=== PATIENT | female | born 1990 | race Caucasian/White ===

== ENCOUNTER 2019-03-11 19:11 | Emergency (ER) | payer OTHER, MEDICAID, SELFPAY ==
[2019-03-11 19:24] VITALS: BMI 27.4
[2019-03-11 19:28] VITALS: BP 132/98; PULSE 86; RESP 20; TEMP 36.6; O2SAT 100; BMI 27.4
[2019-03-11 19:46] LABS: Microscopic, Urine URINE MICROSCOPIC (MICROSCOPIC)
[2019-03-11 19:47] LABS: Basophils # 0.1 K/mm3 (0-0.2); Basophils % 0.6 % (0.1-2.0); Eosinophils # 0.4 K/mm3 (0.0-0.4); Eosinophils % 2.7 % (0.1-12.0); Hematocrit 42.4 % (37.0-47.0); Hemoglobin 13.6 g/dL (12.2-16.2); Lymphocytes # 4.4 K/mm3 (0.7-4.5); Mean Corpuscular Hemoglobin 28.7 pg (27.0-31.2); Mean Corpuscular Volume 89.7 fl (81-99); Mean Platelet Volume 7.3 fl (7.4-10.4); Monocytes # 0.8 K/mm3 (0.1-1.0); Monocytes % 5.9 % (1.7-9.3); Neutrophils # 7.6 K/mm3 (1.8-7.8); Neutrophils % 57.8 % (37.0-80.0); Platelet Count 267 K/mm3 (142-424); Red Blood Count 4.72 M/mm3 (4.20-5.40); Red Cell Distribution Width 13.6 % (11.5-17.5); White Blood Count 13.2 K/mm3 (4.8-10.8)
[2019-03-11 19:49] LABS: Appearance,Urine CLEAR (Clear); Bilirubin,Urine Negative (Negative); Blood, Urine Negative (Negative); Color,Urine YELLOW (Yellow); Glucose,Urine (UA) Negative (Negative); Ketones,Urine Negative (Negative); Leukocyte Esterase,Urine 1+ (Negative); Nitrate,Urine Negative (Negative); Protein,Urine Negative (Negative); Urobilinogen,Urine 0.2 EU/dl (0.2)
[2019-03-11 19:51] LABS: Albumin Level 4.2 gm/dL (3.4-5.0); Anion Gap 13.6 mEq/L (5-15); Blood Urea Nitrogen 13 mg/dL (7-18); Calcium 9.5 mg/dL (8.5-10.1); Carbon Dioxide 29 mmol/L (21.0-32.0); Chloride 102 mmol/L (98-107); Creatinine Clearance Estimated 115 mL/min (50-200); Creatinine,Serum 0.85 mg/dL (0.55-1.02); Estimated Glomerular Filt Rate 81 ml/min (>60); GFR (African American) 98 ML/MIN (>60); Glucose 77 mg/dL (74-106); Potassium 3.6 mmoL/L (3.5-5.1); Sodium 141 mmol/L (136-145)
--- NOTE | 2019-03-11 19:53 | PC.NURSE ---
urine test is positive, ultra sound tech called in.
[2019-03-11 19:55] LABS: Urine Pregnancy, HCG Qual. Positive (Negative)
--- NOTE | 2019-03-11 19:57 | US_ITS ---
US OB transvaginal CLINICAL INDICATION: ITS.REASON: spotting, ORDERING PHYSICIAN: Ceferino Isaacs MD PATIENT AGE: 28 years Comparison: None FINDINGS: There is an intrauterine gestational sac with a mean sac diameter of 7 mm. No pole is evident. No yolk sac apparent. Cannot confirm viability at this time. The right ovary measures 4 x 1.8 cm. Left ovary measures 3 x 1.9 cm. There is bilateral foraminal blood flow. No cul-de-sac fluid. IMPRESSION: There is an intrauterine gestational sac. No pole apparent. It could be due to early to see a pole. Please correlate with serum beta hCG and follow-up ultrasound. Cannot confirm viability at this time.
[2019-03-11 20:01] LABS: Amorphous Sediment,Urine 2+ /lpf; Squamous Epithelial Cell,Urine 20-50 #/hpf (0-5)
--- NOTE | 2019-03-11 20:04 | HMH.EDPREG ---
ED Disposition Clinical Impression: Qualifiers: Weeks of gestation: less than 8 weeks Qualified Code(s): Z3A.01 - Less than 8 weeks gestation of Disposition: Home, Self-Care Condition on Discharge: Good Instructions: DI for Vaginal Bleeding Additional Instructions: see pcp and ob for follow up Referrals: Provider,Referral, [Primary Care Provider] - - Critical Care Critical Care Time: No Attestation: On 03/11/19, the high probability of a clinically significant, sudden or life threatening deterioration of the following system(s) required my full and direct attention, intervention and personal management. The time I documented below is in addition to time spent performing reported procedures but includes the following listed in this critical care notation. Medical Decision Making - Medical Records Medical records reviewed: Yes: I reviewed the patient's medical records. - Amadeo Inquiry Pt receiving controlled substance: No Vital Signs: 03/11/19 19:28 Temperature 97.9 F Temperature Source Oral Pulse Rate [Right] 86 Respiratory Rate 20 Blood Pressure [Right Arm] 132/98 H Blood Pressure Mean [Right Arm] 109 02 Sat by Pulse Oximetry 100 - Lab Data Lab results reviewed: Yes: I reviewed the patient's lab results. Lab Results 03/11/19 19:23: Urine Color Yellow, Urine Appearance Clear, Urine pH 6.0, Ur Specific [place] 1.020, Urine Protein Negative, Urine Glucose (UA) Negative, Urine Ketones Negative, Urine Blood Negative, Urine Nitrate Negative, Urine Bilirubin Negative, Urine Urobilinogen 0.2, Ur Leukocyte Esterase 1+ A, Urine WBC 3-5, Ur Squamous Epith Cells 20-50, Amorphous Sediment 2+ 03/11/19 19:23: Urine HCG, Qual Positive 03/11/19 19:35: WBC 13.2 H, RBC 4.72, Hgb 13.6, Hct 42.4, MCV 89.7, MCH 28.7, MCHC 32.0, RDW 13.6, Plt Count 267, MPV 7.3 L, Neut % (Auto) 57.8, Lymph % (Auto) 33.0, [place] % (Auto) 5.9, Eos % (Auto) 2.7, Baso % (Auto) 0.6, Neut # (Auto) 7.6, Lymph # (Auto) 4.4, [place] # (Auto) 0.8, Eos # (Auto) 0.4, Baso # (Auto) 0.1 03/11/19 19:35: Sodium 141, Potassium 3.6, Chloride 102, Carbon Dioxide 29, Anion Gap 13.6, BUN 13, Creatinine 0.85, Estimated Creat Clear 115, Estimated GFR 81, Est GFR ( Amer) 98, Glucose 77, Calcium 9.5, Total Bilirubin 0.4, AST 13 L, ALT 32, Alkaline Phosphatase 117 H, Total Protein 8.1, Albumin 4.2, Globulin 3.9 H, Albumin/Globulin Ratio 1.1, HCG, Quant 7055 H 03/11/19 19:35: Blood Type O Positive Result diagrams: 03/11/19 19:35 03/11/19 19:35 Orders (Tests/Meds): ED MEDICATIONS Generic Name Dose Route Start Last Admin Trade Name Freq PRN Reason Stop Dose Admin Sodium Chloride 1,000 mls @ 999 mls/hr 03/11/19 19:30 03/11/19 20:16 Sod Chlor 0.9% 1000ml Bag IV 03/11/19 20:30 999 mls/hr .Q1H1M SON Administration ORDERS Category Date Time Status ABO/RH Type Stat BBK 03/11/19 20:05 Ordered Urine Culture Stat Micro 03/11/19 19:23 Received US OB transvaginal Stat Ultrasound 03/11/19 19:57 Ordered - US Data US Images: Pelvis ED US Reviewed: Yes: I have viewed radiologist's interpretation Findings Narrative: gestational sac HPI - General Chief complaint: Vaginal Bleeding Stated complaint: Preg,lots os spotting Time Seen by Provider: 03/11/19 20:00 Mode of Arrival: Ambulatory Source of Information: Patient Limitations: No Limitations Description of Symptoms (Recalled from ER Triage Doc. by RN): Pt states she took a home test thursday and it came back positive, pt stated she began spotting pink blood with mild lower abd cramps today. Pt is unaware how far along she is. Pt states her last period was in january. - History of Present Illness HPI Narrative: spotting today with no pain with early MD Complaint: vaginal bleeding Onset (ago): hour(s) Consistency: intermittent Severity: mild Associated symptoms: denies other symptoms : yes Date of Last Menstrual Period
[2019-03-11 20:27] LABS: Alanine Aminotransferase 32 U/L (12-78); Albumin/Globulin Ratio 1.1 (1.1-1.8); Alkaline Phosphatase 117 U/L (46-116); Aspartate Amino Transferase 13 U/L (15-37); Bilirubin,Total 0.4 mg/dL (0.2-1.0); Globulin 3.9 gm/dl (1.3-3.2); HCG,Quantitative 7055 mIU/mL; Total Protein,Serum 8.1 gm/dL (6.4-8.2)
--- NOTE | 2019-03-11 20:40 | PC.NURSE ---
Pt to US
[2019-03-11 21:36] VITALS: BP 118/78; PULSE 79; RESP 17; TEMP 36.6; O2SAT 100
== END 2019-03-11 21:38 | disposition home or self-care (01) ==
PROVIDERS: Emergency Medicine; Emergency Provider Emergency Medicine
DX: O26.851 Spotting complicating pregnancy, first trimester (principal); F17.210 Nicotine dependence, cigarettes, uncomplicated
CPT/HCPCS: 76817; 80053; 81001; 81025; 84702; 85025; 86900; 86901; 87086; 96365; 99283

== ENCOUNTER 2021-08-04 16:03 | Emergency (ER) | payer MEDICAID, SELFPAY ==
[2021-08-04 16:50] VITALS: BP 127/88; PULSE 86; RESP 19; TEMP 36.9; O2SAT 100; BMI 27.4
[2021-08-04 17:14] LABS: Color,Urine Dark Yellow (Yellow)
[2021-08-04 17:15] LABS: Apearance,Urine Cloudy (Clear); Bilirubin,Urine Negative (Negative); Blood, Urine 1+ (Negative); Glucose,Urine (UA) Negative (Negative); Ketones,Urine Negative (Negative); Protein,Urine 1+ (Negative); UTC Leukocyte Esterase,Urine 3+ (Negative); UTC Nitrate,Urine Positive (Negative); Urobilinogen,Urine 0.2 EU/dl (0.2)
--- NOTE | 2021-08-04 17:37 | HMH.EDUTC ---
[facility] [place] Disposition Clinical Impression: UTI (urinary tract infection) Qualifiers: Urinary tract infection type: site unspecified Hematuria presence: with hematuria Qualified Code(s): N39.0 - Urinary tract infection, site not specified Disposition: Home, Self-Care Condition on Discharge: Good Instructions: Trimethoprim/Sulfamethoxazole (Alternative Therapy), Urinary Tract Infection, DI for Urinary Tract Infection (UTI) Additional Instructions: *Increase fluids. Water not Soda or Tea *Start antibiotic immediately and be sure to take as ordered for the FULL length of time although you should start to see improvement over the next 48 hours *Pyridium as needed Remember this medication will turn your urine [place]. This is normal but it will stain what ever it gets on *You should not use Pyridium for more than 48 hours. If so , follow up with your primary physician to review urine culture and ensure that antibiotic is adequate for infection *Be SURE to follow up anytime for new or worsening symptoms with your family doctor. AND in 48 hours for urine culture results with your family doctor, if you do not have a doctor then you may call back to the [facility] for urine culture results and further treatment. We do recommend that you choose and establish care with a Primary Care Physician. AND follow up with them in 10-14 days to repeat UA to ensure infection is resolved and blood no longer present *Be sure to let your PCP know that we sent urine cultures from the [facility] so they can follow up to ensure that you area the on the correct antibiotic Call your doctor office and make appointment for 48 hours (2 days from today) to follow up and get the results of your urine culture and further treatment Prescriptions: Sulfamethoxazole/Trimethoprim [Bactrim DS tablet] 1 each PO BID 7 Days #14 tab Transmission Status: Received by [facility] Phenazopyridine HCl [Pyridium 200mg Tablet] 200 pow PO TID #6 tab Transmission Status: Received by [facility] Referrals: Ricky Meza MD [Primary Care Provider] - As needed Medical Decision Making - Amadeo Inquiry Pt receiving controlled substance: No Amadeo was queried for this patient: No Vital Signs: 08/04/21 16:50 Temperature 98.4 F Temperature Source Oral Pulse Rate [Right Brachial] 86 Respiratory Rate 19 Blood Pressure [Right Arm] 127/88 Blood Pressure Mean [Right Arm] 101 Blood Pressure Source [Right Arm] Automatic Cuff Blood Pressure Position [Right Arm] Sitting 02 Sat by Pulse Oximetry 100 Oxygen Delivery Method Room Air - Lab Data Lab results reviewed: Yes: I reviewed the patient's lab results. Lab Results 08/04/21 16:56: Urine Color Dark yellow, Urine Appearance Cloudy, Urine pH 5.0, Ur Specific [place] 1.020, Urine Protein 1+, Urine Glucose (UA) Negative, Urine Ketones Negative, Urine Blood 1+, Urine Nitrate Positive A, Urine Bilirubin Negative, Urine Urobilinogen 0.2, Ur Leukocyte Esterase 3+ A 08/04/21 17:39: [facility] Clinic Negative Orders (Tests/Meds): ED MEDICATIONS Discontinued Medications Generic Name Dose Route Start Last Admin Trade Name Freq PRN Reason Stop Dose Admin Ceftriaxone Sodium 1 gm 08/04/21 17:43 08/04/21 18:00 Ceftriaxone 1gm Vial IM 08/04/21 17:44 1 gm ONCE ONE Administration Lidocaine HCl 0 ml 08/04/21 17:43 08/04/21 18:00 Lidocaine 1% 5ml Pf Vial IM 08/04/21 17:44 2.1 ml ONCE ONE Administration ORDERS Category Date Time Status Urine Culture Stat Micro 08/04/21 17:00 Received [facility] [place] HPI - General Stated complaint: back pain possible kidneys Time Seen by Provider: 08/04/21 17:37 Mode of Arrival: Ambulatory Source of Information: Patient Limitations: No Limitations Description of Symptoms (Recalled from Triage Doc. by RN): PATIENT C/O KIDNEY PAIN AND PROBLEMS WITH URINATION X 2 DAYS HEENT Symptoms (Recalled from RN notes): No Resp Symptoms (Recalled from RN notes): No Skin Sy
[2021-08-04 17:39] LABS: UTC Pregnancy Test, Urine Negative (Negative)
[2021-08-04 18:05] VITALS: BP 127/88; PULSE 86; RESP 19; TEMP 36.9; O2SAT 100
== END 2021-08-04 18:12 | disposition home or self-care (01) ==
PROVIDERS: Emergency Provider Nurse Practitioner; PCP Obstetrics & Gynecology
DX: N30.00 Acute cystitis without hematuria (principal); F17.210 Nicotine dependence, cigarettes, uncomplicated
CPT/HCPCS: 81003; 81025; 87086; 87088; 87186; 96372; 99202; G0463

== ENCOUNTER → 2021-10-15 09:36 | Outpatient (CLI) | payer MEDICAID, SELFPAY | PROVIDERS: Visit Provider Nurse Practitioner | DX: U07.1 COVID-19 (principal) | CPT/HCPCS: C9803; U0003; U0005 ==

== ENCOUNTER 2021-12-15 13:44 | Emergency (ER) | payer MEDICAID, SELFPAY ==
[2021-12-15 14:49] VITALS: BP 130/85; PULSE 95; RESP 18; TEMP 38.3; O2SAT 99; BMI 27.4
--- NOTE | 2021-12-15 15:17 | HMH.EDUTC ---
[facility] [place] Disposition Clinical Impression: UTI (urinary tract infection) Qualifiers: Urinary tract infection type: site unspecified Hematuria presence: without hematuria Qualified Code(s): N39.0 - Urinary tract infection, site not specified Disposition: Home, Self-Care Condition on Discharge: Good Instructions: Urinary Tract Infection, DI for Urinary Tract Infection (UTI), DI for Fever (Symptom) -- Adult, Nitrofurantoin Additional Instructions: *Increase fluids. Water not Soda or Tea *Start antibiotic immediately and be sure to take as ordered for the FULL length of time although you should start to see improvement over the next 48 hours *Pyridium as needed Remember this medication will turn your urine [place]. This is normal but it will stain what ever it gets on *You should not use Pyridium for more than 48 hours. If so , follow up with your primary physician to review urine culture and ensure that antibiotic is adequate for infection *Be SURE to follow up anytime for new or worsening symptoms with your family doctor. AND in 48 hours for urine culture results with your family doctor, if you do not have a doctor then you may call back to the [facility] for urine culture results and further treatment. We do recommend that you choose and establish care with a Primary Care Physician. AND follow up with them in 10-14 days to repeat UA to ensure infection is resolved and blood no longer present *Be sure to let your PCP know that we sent urine cultures from the [facility] so they can follow up to ensure that you area the on the correct antibiotic Call your doctor office and make appointment for 48 hours (2 days from today) to follow up and get the results of your urine culture and further treatment Prescriptions: Nitrofurantoin Monohyd/M-Cryst [Macrobid 100 mg Capsule] 100 mg PO BID 7 Days #14 cap Transmission Status: Received by [id number] Phenazopyridine HCl [Pyridium 200mg Tablet] 200 pow PO TID #6 tab Transmission Status: Received by [id number] Referrals: Provider,Referral, [Primary Care Provider] - As needed Time of Disposition: 15:29 Medical Decision Making - Amadeo Inquiry Pt receiving controlled substance: No Amadeo was queried for this patient: No Vital Signs: 12/15/21 14:49 12/15/21 15:48 Temperature 100.9 F H 100.9 F H Temperature Source Oral Pulse Rate 95 H Pulse Rate [Left] 95 H Respiratory Rate 18 18 Blood Pressure 130/85 Blood Pressure [Right Arm] 130/85 Blood Pressure Mean [Right Arm] 100 02 Sat by Pulse Oximetry 99 - Lab Data Lab results reviewed: Yes: I reviewed the patient's lab results. Lab Results 12/15/21 14:52: Urine Color Dark yellow, Urine Appearance Turbid, Urine pH 6.0, Ur Specific [place] 1.020, Urine Protein Negative, Urine Glucose (UA) Negative, Urine Ketones Negative, Urine Blood Negative, Urine Nitrate Negative, Urine Bilirubin Negative, Urine Urobilinogen 2, Ur Leukocyte Esterase 1+ A Orders (Tests/Meds): ED MEDICATIONS Discontinued Medications Generic Name Dose Route Start Last Admin Trade Name Freq PRN Reason Stop Dose Admin Ceftriaxone Sodium 1 gm 12/15/21 15:25 12/15/21 15:40 Ceftriaxone 1gm Vial IM 12/15/21 15:26 1 gm ONCE ONE Administration Lidocaine HCl 0 ml 12/15/21 15:25 12/15/21 15:40 Lidocaine 1% 5ml Pf Vial IM 12/15/21 15:26 2 ml ONCE ONE Administration ORDERS Category Date Time Status Urine Culture Stat Micro 12/15/21 14:44 Received [facility] [place] HPI - General Stated complaint: lower back pain, painful urination, fever Time Seen by Provider: 12/15/21 15:17 Mode of Arrival: Ambulatory Source of Information: Patient Limitations: No Limitations Description of Symptoms (Recalled from Triage Doc. by RN): pt c/o difficulty urinating, burning with urination, fever and lower back pain x4 days. HEENT Symptoms (Recalled from RN notes): No Resp Symptoms (Recalled from RN notes): No Skin Symptoms (Recalled from RN notes
[2021-12-15 15:18] LABS: Apearance,Urine Turbid (Clear); Color,Urine Dark Yellow (Yellow); Glucose,Urine (UA) Negative (Negative); Ketones,Urine Negative (Negative); Protein,Urine Negative (Negative)
[2021-12-15 15:19] LABS: Bilirubin,Urine Negative (Negative); Blood, Urine Negative (Negative); UTC Leukocyte Esterase,Urine 1+ (Negative); UTC Nitrate,Urine Negative (Negative); Urobilinogen,Urine 2 EU/dl (0.2)
[2021-12-15 15:48] VITALS: BP 130/85; PULSE 95; RESP 18; TEMP 38.3
== END 2021-12-15 15:49 | disposition home or self-care (01) ==
PROVIDERS: Emergency Provider Nurse Practitioner
DX: N30.00 Acute cystitis without hematuria (principal); F17.210 Nicotine dependence, cigarettes, uncomplicated
CPT/HCPCS: 81003; 87086; 96372; 99213; G0463; J0696

== ENCOUNTER 2022-01-13 11:32 | Emergency (ER) | payer MEDICAID, SELFPAY ==
[2022-01-13 12:05] VITALS: BP 120/77; PULSE 86; RESP 17; TEMP 37; O2SAT 99; BMI 26.4
--- NOTE | 2022-01-13 12:28 | HMH.EDUTC ---
[facility] [place] Disposition Clinical Impression: Gastroenteritis Disposition: Home, Self-Care Condition on Discharge: Good Instructions: Viral Gastroenteritis, DI for Viral Gastroenteritis -- Adult, Gastroenteritis Diet Additional Instructions: Drink plenty of fluids. Take tylenol or ibuprofen for pain or fever. Take the medications as directed. Follow up with your regular doctor. GO TO THE ER FOR ANY WORSENING SYMPTOMS Prescriptions: Ondansetron [Zofran 4mg ODT] 4 mg PO Q8HP PRN #20 tab PRN Reason: Nausea Transmission Status: Received by [facility] Referrals: Provider,Referral, [Primary Care Provider] - Forms: Work/School Release Time of Disposition: 12:44 Medical Decision Making - Medical Records Medical records reviewed: No: I reviewed the patient's medical records. - Amadeo Inquiry Pt receiving controlled substance: No Vital Signs: 01/13/22 12:05 01/13/22 12:44 Temperature 98.6 F 98.6 F Temperature Source Oral Pulse Rate 86 Pulse Rate [Right Brachial] 86 Respiratory Rate 17 17 Blood Pressure 120/77 Blood Pressure [Right Arm] 120/77 Blood Pressure Mean [Right Arm] 91 Blood Pressure Source [Right Arm] Automatic Cuff Blood Pressure Position [Right Arm] Sitting 02 Sat by Pulse Oximetry 99 Oxygen Delivery Method Room Air - Lab Data Lab results reviewed: Yes: I reviewed the patient's lab results. [facility] [place] HPI - General Stated complaint: vomiting, diarrhea for 4 days Time Seen by Provider: 01/13/22 12:28 Mode of Arrival: Ambulatory Source of Information: Patient Limitations: No Limitations Description of Symptoms (Recalled from Triage Doc. by RN): PATIENT C/O DIARRHEA AND VOMITING X 3 DAYS HEENT Symptoms (Recalled from RN notes): No Resp Symptoms (Recalled from RN notes): No Skin Symptoms (Recalled from RN notes): No MS Symptoms (Recalled from RN notes): No Functional Status (Recalled from RN notes): WNL - History of Present Illness Provider Complaint: She c/o that for the past 3 days she has had n/v/d. - Related Data Home Medications Medication Instructions Recorded Confirmed Venlafaxine HCl [Venlafaxine HCl 75 mg PO DAILY 08/04/21 08/04/21 ER] Previous Rx's Medication Instructions Recorded Phenazopyridine HCl [Pyridium 200 pow PO TID #6 tab 08/04/21 200mg Tablet] Sulfamethoxazole/Trimethoprim 1 each PO BID 7 Days #14 tab 08/04/21 [Bactrim DS tablet] Nitrofurantoin Monohyd/M-Cryst 100 mg PO BID 7 Days #14 cap 12/15/21 [Macrobid 100 mg Capsule] Phenazopyridine HCl [Pyridium 200 pow PO TID #6 tab 12/15/21 200mg Tablet] Ondansetron [Zofran 4mg ODT] 4 mg PO Q8HP PRN #20 tab 01/13/22 Allergies Allergy/AdvReac Type Severity Reaction Status Date / Time No Known Drug Allergies Allergy Unknown -- Verified 02/20/19 12:22 - Worker's Comp Is this a Worker's Comp case?: No [facility] History - Hepatitis A Screen Drug use history?: No High risk sexual behaviors?: No History of sexually transmitted infection?: No Currently employed?: No Childcare worker?: No Do you have indoor plumbing?: Yes Do you have electricity?: Yes Attestation statement:: This patient has been screened for Hepatitis A risk factors. I have reviewed the patient's past medical history: Yes - Social History Smoking Status: Current every day smoker Tobacco Type: cigarettes # Packs/Day (cigarettes): 1 Alcohol Intake: never Occupational Status: employed ROS Obtained: Yes All systems reviewed & no additional complaints - Constitutional Constitutional: Reports as per HPI, Denies chills, Denies fever(s) - Eyes Eyes: Denies eye discharge - Cardiovascular Cardiovascular: Denies chest pain - Respiratory Respiratory: Denies chest congestion, Reports cough, Denies dyspnea, Denies stridor, Denies wheezing - Gastrointestinal Gastrointestingal: Reports: as per HPI Physical Exam - General General appearance: alert, in no appare
[2022-01-13 12:44] VITALS: BP 120/77; PULSE 86; RESP 17; TEMP 37; O2SAT 99
== END 2022-01-13 12:52 | disposition home or self-care (01) ==
PROVIDERS: Emergency Provider Nurse Practitioner Family
DX: K52.9 Noninfective gastroenteritis and colitis, unspecified (principal); F17.210 Nicotine dependence, cigarettes, uncomplicated

== ENCOUNTER 2022-02-19 09:06 | Emergency (ER) | payer MEDICAID, SELFPAY ==
[2022-02-19 09:40] VITALS: BP 113/70; PULSE 62; RESP 22; TEMP 36.6; O2SAT 100; BMI 24.9
[2022-02-19 10:06] LABS: Apearance,Urine Clear (Clear); Color,Urine Yellow (Yellow); Glucose,Urine (UA) Negative (Negative); Ketones,Urine Negative (Negative); Protein,Urine Negative (Negative); Specific Gravity, Urine 1.025 (1.005-1.030)
[2022-02-19 10:07] LABS: Bilirubin,Urine Negative (Negative); Blood, Urine Negative (Negative); UTC Leukocyte Esterase,Urine Negative (Negative); UTC Nitrate,Urine Negative (Negative); Urobilinogen,Urine 0.2 EU/dl (0.2)
--- NOTE | 2022-02-19 10:14 | HMH.EDUTC ---
[facility] [place] Disposition Clinical Impression: UTI (urinary tract infection) Qualifiers: Urinary tract infection type: site unspecified Hematuria presence: without hematuria Qualified Code(s): N39.0 - Urinary tract infection, site not specified Disposition: Home, Self-Care Condition on Discharge: Good Instructions: Urinary Tract Infection, DI for Urinary Tract Infection (UTI) Additional Instructions: *Increase fluids. Water not Soda or Tea *Start antibiotic immediately and be sure to take as ordered for the FULL length of time although you should start to see improvement over the next 48 hours *Be SURE to follow up anytime for new or worsening symptoms with your family doctor. AND in 48 hours for urine culture results with your family doctor, if you do not have a doctor then you may call back to the [facility] for urine culture results and further treatment. We do recommend that you choose and establish care with a Primary Care Physician. AND follow up with them in 10-14 days to repeat UA to ensure infection is resolved and blood no longer present *Be sure to let your PCP know that we sent urine cultures from the [facility] so they can follow up to ensure that you area the on the correct antibiotic Call your doctor office and make appointment for 48 hours (2 days from today) to follow up and get the results of your urine culture and further treatment Prescriptions: cephALEXin [cephALEXin 500mg capsule*] 500 mg PO BID 5 Days #10 cap Transmission Status: Pending to [facility] Referrals: Ricky Meza MD [Primary Care Provider] - As needed Time of Disposition: 10:18 Medical Decision Making - Amadeo Inquiry Pt receiving controlled substance: No Amadeo was queried for this patient: No Vital Signs: 02/19/22 09:40 Temperature 97.9 F Temperature Source Oral Pulse Rate [Left Brachial] 62 Respiratory Rate 22 Blood Pressure [Left Arm] 113/70 Blood Pressure Mean [Left Arm] 84 Blood Pressure Source [Left Arm] Automatic Cuff Blood Pressure Position [Left Arm] Sitting 02 Sat by Pulse Oximetry 100 Oxygen Delivery Method Room Air - Lab Data Lab results reviewed: Yes: I reviewed the patient's lab results. Lab Results 02/19/22 09:28: Urine Color Yellow, Urine Appearance Clear, Urine pH 6.0, Ur Specific [place] 1.025, Urine Protein Negative, Urine Glucose (UA) Negative, Urine Ketones Negative, Urine Blood Negative, Urine Nitrate Negative, Urine Bilirubin Negative, Urine Urobilinogen 0.2, Ur Leukocyte Esterase Negative [facility] [place] HPI - General Stated complaint: lower back pain, unable to urinate Time Seen by Provider: 02/19/22 10:14 Mode of Arrival: Ambulatory Source of Information: Patient Limitations: No Limitations Description of Symptoms (Recalled from Triage Doc. by RN): PATIENT C/O LOWER BACK PAIN THAT STARTED TODAY AND DIFFICULTY URINATING X 2 DAYS HEENT Symptoms (Recalled from RN notes): No Resp Symptoms (Recalled from RN notes): No Skin Symptoms (Recalled from RN notes): No MS Symptoms (Recalled from RN notes): No Functional Status (Recalled from RN notes): WNL - History of Present Illness Provider Complaint: Patient states that she get frequent UTI's on and off States that a couple days ago she noticed she was having an achy like feeling in her lower back and feeling of urgency and frequency States that when she urinates she can only go small amounts at a time like she does when she has a UTI so she came in to get checked - Related Data Home Medications Medication Instructions Recorded Confirmed Venlafaxine HCl [Venlafaxine HCl 75 mg PO DAILY 08/04/21 02/19/22 ER] Previous Rx's Medication Instructions Recorded cephALEXin [cephALEXin 500mg 500 mg PO BID 5 Days #10 cap 02/19/22 capsule*] Allergies Allergy/AdvReac Type Severity Reaction Status Date / Time No Known Drug Allergies Allergy Unknown -- Verified 02/20/19 12:22 - Worker's Comp Is this a Worker's Comp case?: No [facility] History
[2022-02-19 10:21] VITALS: BP 113/70; PULSE 62; RESP 22; TEMP 36.6; O2SAT 100
== END 2022-02-19 10:26 | disposition home or self-care (01) ==
PROVIDERS: Emergency Provider Nurse Practitioner; PCP Obstetrics & Gynecology
DX: N39.0 Urinary tract infection, site not specified (principal); Z72.0 Tobacco use
CPT/HCPCS: 81003; 99212; G0463

== ENCOUNTER 2022-07-03 11:51 | Emergency (ER) | payer BC, MEDICAID, SELFPAY ==
--- NOTE | 2022-07-03 12:38 | EXP.UTC ---
Discharge Plan Disposition Patient Disposition: Home, Self-Care Condition: Good Prescriptions Prescriptions: New azithromycin [Zithromax] 250 mg tablet 250 mg PO UD DOSE PK Qty: 6 0RF Rx Instructions: Take two (2) tablets today, then one (1) tablet days #2 thru #5 benzonatate [benzonatate] 100 mg capsule 100 mg PO TIDP PRN (Reason: Cough) Qty: 30 0RF methylprednisolone 4 mg Tablets,Dose Pack 4 mg PO DIRECTED Qty: 21 0RF No Action cephalexin 500 MG capsule 500 mg PO BID 5 Days Qty: 10 0RF venlafaxine 75 MG tablet extended release 24hr 75 mg PO DAILY Referrals Follow up/Referrals: Provider,Referral, MD [Primary Care Provider] - See instructions Activity Restrictions/Add. Instructions Additional Instructions/Restrictions: Drink plenty of fluids. Take tylenol or ibuprofen for pain or fever. Take the medications as directed. Follow up with your regular doctor. GO TO THE ER FOR ANY WORSENING SYMPTOMS Clinical Impressions Clinical Impression: Sinusitis, Bronchitis Instructions Patient Instructions: Sinusitis, DI for Sinusitis Discharge ED Provider: Roshan De Guzman [facility] General Stated complaint: body aches, sore throat, MONTANO Time Seen by Provider: 07/03/22 12:36 History of Present Illness Provider Complaint: She c/o sore throat and feelling bad for the past 2 days. Related Data Home Medications Medication Instructions Recorded Confirmed venlafaxine 75 mg tablet,extended 75 mg PO DAILY Anxiety 08/04/21 02/19/22 release 24 hr Previous Rx's Medication Instructions Recorded cephalexin 500 mg capsule 500 mg PO BID 5 days #10 caps 02/19/22 azithromycin 250 mg tablet 250 mg PO UD DOSE PK #6 tabs 07/03/22 (Zithromax) benzonatate 100 mg capsule 100 mg PO TIDP PRN Cough #30 caps 07/03/22 methylprednisolone 4 mg tablets in 4 mg PO DIRECTED #21 tabs 07/03/22 a dose pack Allergies Allergy/AdvReac Type Severity Reaction Status Date / Time No Known Drug Allergies Allergy Unknown -- Verified 02/20/19 12:22 [facility] Social History Smoking Status: Current every day smoker tobacco type: cigarettes packs per day: 1 alcohol intake: never current occupational status: other Travel in the last 8 weeks: None ROS Obtained: Yes All systems reviewed & no additional complaints except as documented Constitutional Constitutional: Reports chills and Reports fever(s) Eyes Eyes: Denies eye discharge ENT Ears, Nose, Mouth, and Throat: Reports as per HPI Cardiovascular Cardiovascular: Denies chest pain Respiratory Respiratory: Denies chest congestion and Reports cough Gastrointestinal Gastrointestingal: Reports nausea; Denies abdominal pain, constipation, cramping, diarrhea or vomiting Musculoskeletal Musculoskeletal: Denies arthralgias Integumentary/Breasts Skin/Breast: Denies rash Neurologic Neurologic: Denies paresthesias Physical Exam General General appearance: alert and in no apparent distress Head Head exam: atraumatic, normocephalic and normal inspection Eye Eye exam: Present normal appearance, PERRL and EOMI ENT ENT exam: Present mucous membranes moist and normal external ear exam Expanded ENT Exam TM/Canal exam: Bilateral TM: erythema and bulging Nose exam: Absent sinus tenderness Mouth exam: Present normal external inspection; Absent drooling Teeth exam: Present normal inspection Throat exam: Present tonsillar erythema, tonsillomegaly and tonsillar exudate Neck Neck exam: Present normal inspection, full ROM and trachea midline; Absent tenderness, meningismus or lymphadenopathy Chest Chest inspection: Present normal inspection and symmetric chest wall rise; Absent tenderness Respiratory Respiratory exam: Present normal lung sounds bilaterally; Absent respiratory distress, wheezes or stridor Cardiovascular Cardiovascular exam: Present regular rate and normal rhythm; Absent systoli
[2022-07-03 12:40] VITALS: BP 118/74; PULSE 89; RESP 17; TEMP 36.8; O2SAT 99; BMI 27.4
[2022-07-03 12:44] LABS: UTC Strep Screen (Rapid) Negative (Negative)
[2022-07-03 13:28] VITALS: BP 118/74; PULSE 89; RESP 17; TEMP 36.8; O2SAT 99
== END 2022-07-03 13:29 | disposition home or self-care (01) ==
PROVIDERS: Emergency Provider Nurse Practitioner Family
DX: J40 Bronchitis, not specified as acute or chronic (principal); J32.9 Chronic sinusitis, unspecified
CPT/HCPCS: 87880; 99212; G0463

== ENCOUNTER 2022-07-15 17:13 | Emergency (ER) | payer BC, MEDICAID, SELFPAY ==
[2022-07-15 18:20] VITALS: BP 124/81; PULSE 72; RESP 19; TEMP 36.7; O2SAT 98; BMI 24.8
[2022-07-15 18:40] LABS: UTC Strep Screen (Rapid) Negative (Negative)
[2022-07-15 18:46] LABS: Adenovirus,PCR Not Detected (NotDetected); Bordetella Pertussis Not Detected (NotDetected); Chlamydophila Pneumoniae, PCR Not Detected (NotDetected); Coronavirus 19, PCR Not Detected (NotDetected); Coronavirus 229E Not Detected (NotDetected); Coronavirus NL63 Not Detected (NotDetected); Coronavirus OC43 Not Detected (NotDetected); Coronovirus HKU1,PCR Not Detected (NotDetected); Human Metapneumovirus Not Detected (NotDetected); Influenza A, PCR Not Detected (NotDetected); Influenza AH1, 2009 Not Detected (NotDetected); Influenza AH1, PCR Not Detected (NotDetected); Influenza AH3,PCR Not Detected (NotDetected); Influenza B, PCR Not Detected (NotDetected); Mycoplasma Pneumoniae, PCR Not Detected (NotDetected); Parainfluenza 1, PCR Not Detected (NotDetected); Parainfluenza 2, PCR Not Detected (NotDetected); Parainfluenza 3, PCR Not Detected (NotDetected); Respiratory Syncytial Virus Not Detected (NotDetected)
[2022-07-15 18:52] VITALS: BP 124/81; PULSE 72; RESP 19; TEMP 36.7; O2SAT 98
--- NOTE | 2022-07-15 19:19 | EXP.UTC ---
Discharge Plan Disposition Patient Disposition: Home, Self-Care Condition: Good Prescriptions Prescriptions: New pikvekzathfzyca-thprfxnxu-UL [Bromfed DM] 2-30-10 mg/5 mL syrup 10 ml PO Q6H PRN (Reason: cold symptoms) Qty: 200 0RF No Action venlafaxine 75 MG tablet extended release 24hr 75 mg PO DAILY Referrals Follow up/Referrals: Provider,Referral, MD [Primary Care Provider] - See instructions Clinical Impressions Clinical Impression: Acute upper respiratory infection Instructions Patient Instructions: DI for Viral Upper Respiratory Infection -- Adult Discharge ED Provider[place]an [place] [facility] [place] General Stated complaint: soa, cough, body aches, congestion, runny nose Mode of Arrival: Ambulatory Source of Information: Patient Limitations: No Limitations Time Seen by Provider: 07/15/22 19:18 Description of Symptoms (Recalled from Triage Doc. by RN): PATIENT C/O RUNNY NOSE, COUGH, AND SORE THROAT X 3 DAYS HEENT Symptoms (Recalled from RN notes): Yes Resp Symptoms (Recalled from RN notes): Yes Skin Symptoms (Recalled from RN notes): No MS Symptoms (Recalled from RN notes): No Functional Status (Recalled from RN notes): WNL History of Present Illness Provider Complaint: Pt states that for 3 days she has had non-productive cough, green sinus drainage and sore throat. She has taken Tylenol for her symptoms. She denies known fever. 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 Related Data Home Medications Medication Instructions Recorded Confirmed venlafaxine 75 mg tablet,extended 75 mg PO DAILY Anxiety 08/04/21 07/15/22 release 24 hr Previous Rx's Medication Instructions Recorded rytwhenzsizovir-tkdfujxauqbbjnc-YW 10 ml PO Q6H PRN cold symptoms 07/15/22 2 mg-30 mg-10 mg/5 mL oral syrup #200 mL (Bromfed DM) Allergies Allergy/AdvReac Type Severity Reaction Status Date / Time No Known Drug Allergies Allergy Unknown -- Verified 02/20/19 12:22 Worker's Comp Is this a Worker's Comp case?: No PFSH PFSH Medical History (Updated 07/15/22 @ 19:27 by Suzan Mitchell APRN) Anxiety Depression Urinary tract infection Social History (Updated 10/11/22 @ 18:32 by Zaynab Ceballos RN) Smoking Status: Current every day smoker tobacco type: cigarettes packs per day: 1 alcohol intake: never current occupational status: other Travel in the last 8 weeks: None ROS Obtained: Yes All systems reviewed & no additional complaints except as documented Constitutional Constitutional: Reports system reviewed and no additional complaints, except as documented and Reports malaise Eyes Eyes: Reports system reviewed and no additional complaints, except as documented ENT Ears, Nose, Mouth, and Throat: Reports as per HPI, Reports hoarseness, Reports nasal congestion, Reports nasal discharge, Reports odynophagia and Reports post nasal drip Cardiovascular Cardiovascular: Reports system reviewed and no additional complaints, except as documented Respiratory Respiratory: Reports non-productive cough Gastrointestinal Gastrointestingal: Reports odynophagia Genitourinary Female Genitourinary: Reports system reviewed and no additional complaints, except as documented Musculoskeletal Musculoskeletal: Reports system reviewed and no additional complaints, except as documented Integumentary/Breasts Skin/Breast: Reports system reviewed and no additional complaints, except as documented Neurologic Neurologic: Reports system reviewed and no additional complaints, except as documented Endocrine Endocrine: Reports system reviewed and no additional complaints, except as documented Hematologic/Lymphatic Henatologic/Lymphatic: Reports system reviewed and no additional complaints, except as documented Allergic/Immunologic Allergic/Immunologic: Reports system reviewed and no additional complaints, except as documented Physical Exam General General appearance: alert
[2022-07-15 23:30] LABS: Parainfluenza 4, PCR Detected (NotDetected); Rhinovirus/Enterovirus Detected (NotDetected)
== END 2022-07-15 19:38 | disposition home or self-care (01) ==
PROVIDERS: Emergency Provider Nurse Practitioner Family
DX: J06.9 Acute upper respiratory infection, unspecified (principal)
CPT/HCPCS: 87581; 87632; 87798; 87880; 99212; C9803; G0463; U0003; U0005

== ENCOUNTER → 2022-08-29 11:45 | Outpatient (CLI) | payer BC, MEDICAID, SELFPAY ==
[2022-08-29 13:14] LABS: HCG,Quantitative 9706 mIU/ml (0-5.42)
== END ==
PROVIDERS: Visit Provider Obstetrics & Gynecology
DX: Z32.01 Encounter for pregnancy test, result positive (principal)
CPT/HCPCS: 36415; 84702

== ENCOUNTER 2022-09-02 22:29 | Emergency (ER) | payer BC, MEDICAID, SELFPAY ==
[2022-09-02 23:08] VITALS: BP 112/74; PULSE 88; RESP 18; TEMP 36.8; O2SAT 99; BMI 26.7
[2022-09-02 23:21] LABS: Coronavirus 19, PCR Not Detected (NotDetected); Influenza A, PCR Not Detected (NotDetected); Influenza B, PCR Not Detected (NotDetected)
--- NOTE | 2022-09-03 00:43 | PC.NURSE ---
Rechecked pt condition. Pt was resting with eyes close. Pt updated on POC.
--- NOTE | 2022-09-03 01:04 | HMH.EDURI ---
Discharge Plan Disposition Patient Disposition: Home, Self-Care Chief Complaint: Upper Respiratory Infection Prescriptions Prescriptions: No Action venlafaxine 75 MG tablet extended release 24hr 75 mg PO DAILY qyegzkjbofoqqcl-gtrlqqdmu-YQ [Bromfed DM] 2-30-10 mg/5 mL syrup 10 ml PO Q6H PRN (Reason: cold symptoms) Qty: 200 0RF Referrals Follow up/Referrals: Provider,Referral, MD [Primary Care Provider] - See instructions Clinical Impressions Clinical Impression: Upper respiratory infection, Instructions Patient Instructions: DI for Acute Bronchitis Discharge ED Provider: Ceferino Graham URI/Sore Throat HPI General Chief Complaint: Upper Respiratory Infection Stated Complaint: Vomiting,body aches,chills, Time Seen by Provider: 09/03/22 01:04 Mode of Arrival: Ambulatory Source of Information: Patient and Medical Record Limitations: No Limitations Description of Symptoms (Recalled from ER Triage Doc. by RN): Patient arrived via pov c c/o n/v. States that her child and s/o have both tested positive for the flu. History of Present Illness HPI Narrative: uri sx and cough today with exposure to flu - is 7 weeks Complaint: fever and cough Onset (ago): hour(s) Duration: intermittent Severity: moderate Context: sick contacts Associated symptoms: nasal congestion Treatments prior to arrival: acetaminophen Related Data Home Medications Medication Instructions Recorded Confirmed venlafaxine 75 mg tablet,extended 75 mg PO DAILY Anxiety 08/04/21 07/15/22 release 24 hr Previous Rx's Medication Instructions Recorded fdswxgxhodpzxdz-gobsskqprgkikvb-VR 10 ml PO Q6H PRN cold symptoms 07/15/22 2 mg-30 mg-10 mg/5 mL oral syrup #200 mL (Bromfed DM) Allergies Allergy/AdvReac Type Severity Reaction Status Date / Time No Known Drug Allergies Allergy Unknown -- Verified 02/20/19 12:22 [facility] Medical History (Updated 09/03/22 @ 01:08 by Ceferino Graham MD) Anxiety Depression Urinary tract infection Social History (Updated 07/15/22 @ 18:32 by Zaynab Ceballos RN) Smoking Status: Current every day smoker tobacco type: cigarettes packs per day: 1 alcohol intake: never current occupational status: other Travel in the last 8 weeks: None ROS Obtained: Yes All systems reviewed & no additional complaints except as documented Physical Exam General General appearance: alert Head Head exam: normocephalic Eye Eye exam: Present PERRL and EOMI ENT ENT exam: Present normal oropharynx and mucous membranes moist Neck Neck exam: Present full ROM and trachea midline; Absent meningismus Respiratory Respiratory exam: Present normal lung sounds bilaterally; Absent respiratory distress Cardiovascular Cardiovascular exam: Present regular rate; Absent systolic murmur Abdominal Exam Abdominal exam: Present soft Extremities Exam Extremities exam: Present full ROM Neurological Exam Neurological exam: Present alert, oriented X3 and CN II-XII intact Skin Skin exam: Absent rash Medical Decision Making Medical Records Medical records reviewed: Yes I reviewed the patient's medical records. Amadeo Inquiry Pt receiving controlled substance: No Vital Signs: 09/02/22 23:08 Temperature 98.2 F Temperature Source Oral Pulse Rate [Apical] 88 Respiratory Rate 18 Blood Pressure [Right Arm] 112/74 Blood Pressure Mean [Right Arm] 86 Blood Pressure Source [Right Arm] Automatic Cuff Blood Pressure Position [Right Arm] Sitting 02 Sat by Pulse Oximetry 99 Oxygen Delivery Method Room Air Lab Data Lab results reviewed: Yes I reviewed the patient's lab results. Lab Results 09/02/22 23:05: SARS-CoV-2 (PCR) Not detected, Influenza A Untype (PCR) Not detected, Influenza Type B (PCR) Not detected Orders (Tests/Meds): ORDERS Category Date Time Status Full Resp Panel w/COVID ([facility]) Routine Lab 09/03/22 23:05 Received Rapid PCR Covid and Flu A/B Sta
[2022-09-03 01:14] VITALS: BP 108/59; PULSE 82; RESP 19; TEMP 36.6; O2SAT 99
[2022-09-03 10:31] LABS: Adenovirus,PCR Not Detected (NotDetected); Bordetella Pertussis Not Detected (NotDetected); Chlamydophila Pneumoniae, PCR Not Detected (NotDetected); Coronavirus 19, PCR Not Detected (NotDetected); Coronavirus 229E Not Detected (NotDetected); Coronavirus NL63 Not Detected (NotDetected); Coronavirus OC43 Not Detected (NotDetected); Coronovirus HKU1,PCR Not Detected (NotDetected); Human Metapneumovirus Not Detected (NotDetected); Influenza A, PCR Not Detected (NotDetected); Influenza AH1, 2009 Not Detected (NotDetected); Influenza AH1, PCR Not Detected (NotDetected); Influenza AH3,PCR Not Detected (NotDetected); Influenza B, PCR Not Detected (NotDetected); Mycoplasma Pneumoniae, PCR Not Detected (NotDetected); Parainfluenza 1, PCR Not Detected (NotDetected); Parainfluenza 2, PCR Not Detected (NotDetected); Parainfluenza 3, PCR Not Detected (NotDetected); Parainfluenza 4, PCR Not Detected (NotDetected); Respiratory Syncytial Virus Not Detected (NotDetected); Rhinovirus/Enterovirus Not Detected (NotDetected)
== END 2022-09-03 01:30 | disposition home or self-care (01) ==
PROVIDERS: Emergency Provider Emergency Medicine
DX: O99.511 Diseases of the respiratory system complicating pregnancy, first trimester (principal); J06.9 Acute upper respiratory infection, unspecified; O26.891 Other specified pregnancy related conditions, first trimester; O21.9 Vomiting of pregnancy, unspecified; Z20.822 Contact with and (suspected) exposure to COVID-19; O23.41 Unspecified infection of urinary tract in pregnancy, first trimester; O99.340 Other mental disorders complicating pregnancy, unspecified trimester; F32.A Depression, unspecified; F41.9 Anxiety disorder, unspecified; O99.331 Smoking (tobacco) complicating pregnancy, first trimester; F17.210 Nicotine dependence, cigarettes, uncomplicated; Z3A.01 Less than 8 weeks gestation of pregnancy
CPT/HCPCS: 87581; 87632; 87798; 99283; C9803; U0003; U0005

== ENCOUNTER → 2022-09-19 10:15 | Outpatient (CLI) | payer BC, MEDICAID, SELFPAY ==
--- NOTE | 2022-09-19 10:24 | US_ITS ---
FINAL REPORT CLINICAL HISTORY: viability FINDINGS: A gestational sac is present within the uterus. pole measures 16 mm consistent with 8 weeks 1 day gestation. No heartbeat is identified consistent with a failed . The ovaries are normal. There is no free fluid. IMPRESSION: Findings are consistent with a failed . Reviewed, Interpreted and Dictated by Kenneth Porras III, MD Transcribed by Hannah Yu Authenticated and [facility]
[2022-09-19 12:46] LABS: Basophils # 0.1 K/mm3 (0-0.2); Basophils % 0.9 % (0.1-2.0); Eosinophils # 0.2 K/mm3 (0.0-0.4); Eosinophils % 2.2 % (0.1-12.0); Hematocrit 40.9 % (37.0-47.0); Hemoglobin 13.3 g/dL (12.2-16.2); Lymphocytes # 1.9 K/mm3 (0.7-4.5); Lymphocytes % 18.6 % (10-50); Mean Corpuscular HGB Conc 32.5 g/dL (31.8-35.4); Mean Corpuscular Hemoglobin 30.4 pg (27.0-31.2); Mean Corpuscular Volume 93.5 fl (81-99); Mean Platelet Volume 8.3 fl (7.4-10.4); Monocytes # 0.4 K/mm3 (0.1-1.0); Monocytes % 3.6 % (1.7-9.3); Neutrophils # 7.8 K/mm3 (1.8-7.8); Neutrophils % 74.8 % (37.0-80.0); Platelet Count 251 K/mm3 (142-424); Red Blood Count 4.37 M/mm3 (4.20-5.40); Red Cell Distribution Width 13.9 % (11.5-17.5); White Blood Count 10.4 K/mm3 (4.8-10.8)
[2022-09-19 13:38] LABS: Alanine Aminotransferase 21 U/L (12-78); Albumin Level 4.6 g/dl (3.5-5.0); Albumin/Globulin Ratio 1.8 (1.1-1.8); Alkaline Phosphatase 105 U/L (38-126); Anion Gap 13.1 mEq/L (5-15); Aspartate Amino Transferase 23 U/L (14-36); Bilirubin,Total 0.6 mg/dl (0.2-1.3); Blood Urea Nitrogen 13 mg/dl (7-17); Calcium 10.2 mg/dl (8.4-10.2); Carbon Dioxide 25 mmol/L (22.0-30.0); Chloride 105 mmol/L (98-107); Estimated Glomerular Filt Rate 98 ml/min (>60); GFR (African American) 119 ML/MIN (>60); Globulin 2.6 g/dL (1.3-3.2); Glucose 94 mg/dl (74-100); Potassium 4.1 mmoL/L (3.5-5.1); Sodium 139 mmol/L (136-145); Total Protein,Serum 7.2 g/dl (6.3-8.2)
== END ==
PROVIDERS: Visit Provider Obstetrics & Gynecology
DX: O03.9 Complete or unspecified spontaneous abortion without complication (principal)
CPT/HCPCS: 36415; 76817; 80053; 85025; 86850

== ENCOUNTER 2022-09-23 06:04 | Day surgery (SDC) | payer BC, MEDICAID, SELFPAY ==
[2022-09-19 16:44] VITALS: BMI 28.3
[2022-09-23 06:36] VITALS: BP 108/65; PULSE 74; RESP 18; TEMP 36.6; O2SAT 100
--- NOTE | 2022-09-23 07:04 | P.PN_ITS ---
[facility] Disclaimer: The information contained in this section may have been updated after the patient was seen, as this information can be updated by other users. Medical History Anxiety Depression Urinary tract infection Surgical History No significant past surgical history Family History Other No significant family history Social History Smoking Status: Current every day smoker tobacco type: cigarettes packs per day: 1 alcohol intake: never substance use type: denies use current occupational status: employed Travel in the last 8 weeks: None [facility] Anesthesia Checklist Patient Identification Patient Identification: Arm Band and Verbal (Name & ) Structural Data Admitted From: Home Planned Operative Procedure/s: D & C Consent for Planned Operative Procedure(s) Verified: Yes NPO Status Verified Time NPO: 00:00 Chart Verification Results Verified: CBC and BMP Additional verifications Anesthesia Reactions: No Hx Blood Transfusions: Yes Blood Transfusion Reaction: No Airway Assessment C-Spine Mobility Assessed: Yes TMJ Mobility Assessed: Yes Dentition: Good Dentition Neurological Assessment Level of Consciousness: Awake Hx Seizures: No Numbness or tingling in extremities: No Anesthesia Plan Anesthesia Risk discussed: Yes Anesthesia Plan: Verified ASA Class: II Anesthesia Type: MAC
--- NOTE | 2022-09-23 08:29 | P.OP_ITS ---
Date of procedure: 09/23/22 Pre-op Diagnosis:: Missed @ 8 weeks Post-op Diagnosis:: Same Procedure performed:: Suction Dilation and Curettage Surgeon:: Delisa Iglesias MD Refrigeration Brazer/Solderer(s):: None INSPECTOR [employer]:: Yolanda Plummer Anesthesia: MAC Estimated blood loss (mL): 200 Operative findings:: uterus 10 weeks size no active bleeding prior to procedure Operative note:: The patient was taken to the OR and general anesthesia administered without difficulty. She was prepped and draped in lithotomy position. Cedeño retractors were used to visualize the cervix and a single tooth tenaculum placed on the anterior lip of the cervix. The cervix was passively dilated until it could accomodate the suction curette. A size # 8curved curette was used to evacuate the contents of the uterus. The size 8 curette was not wide enough to accommodate the passage of all of the tissue, and the cervix was further dilated. A size #10 curved curette was used to complete the evacuation. Once all tissue had been evacuated, sharp curettage was used to ensure that no products remained within the uterine cavity. All instruments were then removed from the patients vagina, she was taken out of lithotomy position, awakened from anesthesia and taken to the PACU in stable condition. EBL: 200cc Condition: stable Disposition: PACU Specimens:: Products of conception Complications:: None
[2022-09-23 08:30] VITALS: BP 97/57; PULSE 85; RESP 16; TEMP 36.4; O2SAT 97
[2022-09-23 08:40] VITALS: BP 98/55; PULSE 78; RESP 16; O2SAT 99
[2022-09-23 08:50] VITALS: BP 100/61; PULSE 75; RESP 17; O2SAT 100
[2022-09-23 09:00] VITALS: BP 115/62; PULSE 72; RESP 16; O2SAT 100
[2022-09-23 09:27] VITALS: BP 101/67; PULSE 70; RESP 17; O2SAT 100
== END 2022-09-23 09:30 | disposition home or self-care (01) ==
PROVIDERS: Visit Provider Obstetrics & Gynecology
PROC: (CPT 59820; principal; 2022-09-23 07:30)
DX: O02.1 Missed abortion (principal); Z3A.08 8 weeks gestation of pregnancy; F17.210 Nicotine dependence, cigarettes, uncomplicated; Z79.899 Other long term (current) drug therapy
CPT/HCPCS: 59820; 86850; 96374; J2405

== ENCOUNTER → 2022-11-07 14:07 | Outpatient (CLI) | payer MEDICAID, SELFPAY ==
[2022-11-07 15:13] LABS: HCG,Quantitative 4 mIU/ml (0-5.42)
== END ==
PROVIDERS: Visit Provider Obstetrics & Gynecology
DX: Z32.00 Encounter for pregnancy test, result unknown (principal)
CPT/HCPCS: 36415; 84702

== ENCOUNTER → 2022-12-11 09:45 | Outpatient (CLI) | payer MEDICAID, SELFPAY ==
[2022-12-12 08:52] LABS: Progesterone 0.3 ng/mL (.)
== END ==
PROVIDERS: Visit Provider Obstetrics & Gynecology
DX: Z31.41 Encounter for fertility testing (principal)
CPT/HCPCS: 36415; 84144

== ENCOUNTER → 2022-12-25 15:31 | Outpatient (CLI) | payer MEDICAID, SELFPAY ==
[2022-12-25 16:56] LABS: HCG,Quantitative < 2 mIU/ml (0-5.42)
== END ==
PROVIDERS: Visit Provider Obstetrics & Gynecology
DX: Z32.00 Encounter for pregnancy test, result unknown (principal)
CPT/HCPCS: 36415; 84702

== ENCOUNTER → 2023-01-26 08:41 | Outpatient (CLI) | payer MEDICAID, SELFPAY ==
[2023-01-27 11:57] LABS: Progesterone 0.2 ng/mL (.)
== END ==
PROVIDERS: Visit Provider Obstetrics & Gynecology
DX: N97.0 Female infertility associated with anovulation (principal)
CPT/HCPCS: 36415; 84144

== ENCOUNTER → 2023-03-03 10:54 | Outpatient (CLI) | payer MEDICAID, SELFPAY ==
[2023-03-04 09:02] LABS: Progesterone 0.9 ng/mL (.)
== END ==
PROVIDERS: Visit Provider Obstetrics & Gynecology
DX: N97.0 Female infertility associated with anovulation (principal)
CPT/HCPCS: 36415; 84144

== ENCOUNTER 2023-12-28 19:00 | Emergency (ER) | payer MEDICAID, SELFPAY ==
[2023-12-28 20:25] VITALS: BP 131/90; PULSE 103; RESP 18; TEMP 36.9; O2SAT 99; BMI 33.1
--- NOTE | 2023-12-28 20:30 | EXP.UTC ---
Discharge Plan Disposition Patient Disposition: Home, Self-Care Condition: Good Prescriptions Prescriptions: New amoxicillin 500 mg capsule 500 mg PO TID 7 Days Qty: 21 0RF No Action sertraline 50 mg tablet 50 mg PO DAILY Vitamin Plus Low Iron 27 mg iron- 1 mg tablet 1 tab PO DAILY medroxyprogesterone [Provera] 10 mg tablet 10 mg PO DAILY 7 Days Qty: 7 4RF clomiphene citrate 50 mg tablet 100 mg PO DAILY 5 Days Qty: 10 2RF Referrals Follow up/Referrals: Provider,Referral, [Primary Care Provider] - See instructions Activity Restrictions/Add. Instructions Additional Instructions/Restrictions: *Monitor Temp, Over the counter Motrin or Tylenol as directed/as needed Tylenol every 4 hours and Motrin every 6 hours (as long as your family doctor has told you that you can take it) for fever or pain. and straight to ER if unable to lower temp less than 101.0 after medication given *Warm salt water gargles may help to soothe the throat *Throat Lozenges? *Warm fluids like tea with honey may help to soothe the throat? *Sleep elevated *Humidifier/Vaporizer Your throat swab was sent for culture. Those results are typically sent to your primary care. Be sure to follow up in 2-3 days with your family doctor/primary care physician if no improvement so they can review those result and treat if necessary. If you don?t have a primary care doctor, I recommend you get one but in the mean time, you will have to return to a walk in clinic Follow up IMMEDIATELY for new or worsening symptoms or no Noticeable improvement over the next 48-72 hours. 911 for difficulty breathing or swallowing Clinical Impressions Clinical Impression: Otitis media Instructions Patient Instructions: Middle Ear Infection, Sore Throat Discharge ED Provider: Helene Pond [facility] [place] General Stated complaint: cough, jeffry, fever Mode of Arrival: Ambulatory Source of Information: Patient Limitations: No Limitations Time Seen by Provider: 12/28/23 20:30 Description of Symptoms (Recalled from Triage Doc. by RN): PATIENT C/O CHEST CONGESTION, FEVER, NASAL CONGESTION, AND COUGH X 3 DAYS HEENT Symptoms (Recalled from RN notes): Yes Resp Symptoms (Recalled from RN notes): Yes Skin Symptoms (Recalled from RN notes): No MS Symptoms (Recalled from RN notes): No Functional Status (Recalled from RN notes): WNL History of Present Illness Provider Complaint: Patient states that she hasnt felt well for about 3-4 days States that she is 35wks OB states that she has been having cough, sore throat, sinus congestion, pain in her ears, and loss her voice States that she feels like it is trying to move into her chest so she came in to get checked Denies leaking fluid Denies related problems Related Data Home Medications Medication Instructions Recorded Confirmed sertraline 50 mg tablet 50 mg PO DAILY Depression 09/19/22 12/25/22 vitamin with calcium 1 tab PO DAILY 11/07/22 12/25/22 no.72-iron 27 mg-folic acid 1 mg tablet ( Vitamins Plus Low Iron) Previous Rx's Medication Instructions Recorded medroxyprogesterone 10 mg tablet 10 mg PO DAILY 7 days #7 tabs 12/25/22 (Provera) clomiphene citrate 50 mg tablet 100 mg (2 x 50 mg) PO DAILY 5 days 03/06/23 #10 tabs amoxicillin 500 mg capsule 500 mg PO TID 7 days #21 caps 12/28/23 Allergies Allergy/AdvReac Type Severity Reaction Status Date / Time No Known Drug Allergies Allergy Unknown -- Verified 12/25/22 14:52 Worker's Comp Is this a Worker's Comp case?: No [facility] Disclaimer: The information contained in this section may have been updated after the patient was seen, as this information can be updated by other users. Medical History Anxiety Depression Urinary tract infection Surgical History History of dilation and curettage Family History Other No significant family history Social History Smoking Status: Current every day smoker tobacco type: cigarettes packs per day: 1 alcohol intake: never substance use type: denies use current occupational status: employed Travel in the last 8 weeks: None ROS Obtained: Yes All systems reviewed & no additional complaints except as documented and Yes Systems reviewed as appropriate & no additional complaints except as documented Constitutional Constitutional: Reports system reviewed and no additional complaints, except as documented, Reports as per HPI and Reports fever(s) ENT Ears, Nose, Mouth, and Throat: Reports system reviewed and no additional complaints, except as documented, Reports as per HPI, Reports otalgia, Reports nasal congestion, Reports sinus pressure and Reports sore throat Cardiovascular Cardiovascular: Reports system reviewed and no additional complaints, except as documented and Reports as per HPI Respiratory Respiratory: Reports system reviewed and no additional complaints, except as documented, Reports as per HPI and Reports cough Gastrointestinal Gastrointestingal: Reports system reviewed and no additional complaints, except as documented and as per HPI Physical Exam General General appearance: alert and in no apparent distress ENT ENT exam: Present mucous membranes moist Expanded ENT Exam TM/Canal exam: Left TM: erythema and bulging Nose exam: Present sinus tenderness Throat exam: Present tonsillar erythema Respiratory Respiratory exam: Present normal lung sounds bilaterally; Absent respiratory distress or wheezes Cardiovascular Cardiovascular exam: Present regular rate, normal rhythm and tachycardia Neurological Exam Neurological exam: Present alert, oriented X3 and normal gait Medical Decision Making Amadeo Inquiry Pt receiving controlled substance: No Amadeo was queried for this patient: No Vital Signs: 12/28/23 20:25 Temperature 98.5 F Temperature Source Oral Pulse Rate [Right Brachial] 103 H Respiratory Rate 18 Blood Pressure [Right Arm] 131/90 Blood Pressure Mean [Right Arm] 103 Blood Pressure Source [Right Arm] Automatic Cuff Blood Pressure Position [Right Arm] Sitting 02 Sat by Pulse Oximetry 99 Oxygen Delivery Method Room Air Lab Data Lab results reviewed: Yes I reviewed the patient's lab results. Medical Decision Narrative: Patient 35wks OB medication discussed with pharmacy to make sure safe for use during Amoxicillin is safe for use during
[2023-12-28 20:35] VITALS: BP 131/90; PULSE 103; RESP 18; TEMP 36.9; O2SAT 99
[2023-12-28 20:43] LABS: UTC Strep Screen (Rapid) Negative (Negative)
[2023-12-28 20:43] LABS: UTC Influenza A Antigen Negative (Negative)
[2023-12-28 20:44] LABS: UTC Influenza B Antigen Negative (Negative)
[2023-12-28 20:54] LABS: Adenovirus,PCR Not Detected (NotDetected); Coronavirus 19, PCR Not Detected (NotDetected); Coronavirus 229E Not Detected (NotDetected); Coronavirus NL63 Not Detected (NotDetected); Coronavirus OC43 Not Detected (NotDetected); Coronovirus HKU1,PCR Not Detected (NotDetected); Influenza A, PCR Not Detected (NotDetected); Influenza AH1, 2009 Not Detected (NotDetected); Influenza AH1, PCR Not Detected (NotDetected); Influenza AH3,PCR Not Detected (NotDetected); Influenza B, PCR Not Detected (NotDetected); Parainfluenza 1, PCR Not Detected (NotDetected); Parainfluenza 2, PCR Not Detected (NotDetected); Parainfluenza 3, PCR Not Detected (NotDetected); Parainfluenza 4, PCR Not Detected (NotDetected); Respiratory Syncytial Virus Not Detected (NotDetected); Rhinovirus/Enterovirus Not Detected (NotDetected)
[2023-12-29 00:08] LABS: Human Metapneumovirus Detected (NotDetected)
== END 2023-12-28 20:50 | disposition home or self-care (01) ==
PROVIDERS: Emergency Provider Nurse Practitioner
DX: H66.92 Otitis media, unspecified, left ear (principal); B97.81 Human metapneumovirus as the cause of diseases classified elsewhere; R05.9 Cough, unspecified; R09.81 Nasal congestion; R07.0 Pain in throat; F17.210 Nicotine dependence, cigarettes, uncomplicated
CPT/HCPCS: 87581; 87632; 87635; 87798; 87804; 87880; 99212; 99214; G0463

== ENCOUNTER 2025-08-17 17:37 | Emergency (ER) | payer BC, SELFPAY ==
[2025-08-17 17:40] VITALS: BP 153/72; PULSE 63; RESP 18; TEMP 36.8; O2SAT 99; BMI 29.9
--- NOTE | 2025-08-17 17:44 | CT_ITS ---
PROCEDURE INFORMATION: Exam: CT Lumbar Spine Without Contrast Exam date and time: 08/17/2025 7:16 PM Age: 35 years old Clinical indication: Low back pain; Additional info: Pain in lumbar spine TECHNIQUE: Imaging protocol: Computed tomography of the lumbar spine without contrast. Radiation optimization: All CT scans at this facility use at least one of these dose optimization techniques: automated exposure control; mA and/or kV adjustment per patient size (includes targeted exams where dose is matched to clinical indication); or iterative reconstruction. COMPARISON: US OB TRANSVAGINAL 09/19/2022 11:02 AM FINDINGS: Bones/joints: Degenerative changes at L3-L4 and L4-L5 produce mild spinal stenosis. Gallbladder and biliary ducts: Contracted gallbladder. Kidneys and ureters: Duplex left kidney. Appendix: Unremarkable appendix. Soft tissues: Unremarkable. IMPRESSION: No acute fracture or malalignment of the lumbar spine.
--- NOTE | 2025-08-17 17:47 | ED_ITS ---
<Statement entered by Anastasia Escobar DO - 08/18/25 21:24> I was consulted by the GABRIELA, and we discussed the complexity of problems being addressed. I approve the treatment and management plan for this patient's care in the emergency department, thus performing a substantial portion of the medical decision making. Anastasia Escobar DO Discharge Plan Disposition Patient Disposition: Home, Self-Care Prescriptions Prescriptions: New methocarbamol 1,000 mg tablet 1,000 mg PO QID 3 Days Qty: 12 0RF prednisone 20 mg tablet 20 mg PO BID 7 Days Qty: 14 0RF ketorolac 10 mg tablet 10 mg PO Q8H 5 Days Qty: 15 0RF No Action sertraline 50 mg tablet 50 mg PO DAILY Vitamin Plus Low Iron 27 mg iron- 1 mg tablet 1 tab PO DAILY medroxyprogesterone [Provera] 10 mg tablet 10 mg PO DAILY 7 Days Qty: 7 4RF clomiphene citrate 50 mg tablet 100 mg PO DAILY 5 Days Qty: 10 2RF amoxicillin 500 mg capsule 500 mg PO TID 7 Days Qty: 21 0RF Referrals Follow up/Referrals: Connor Starr [Referring, Medical] - See instructions Provider,Referral, [Primary Care Provider, Medical] - See instructions Activity Restrictions/Add. Instructions Additional Instructions/Restrictions: Increase fluids and rest. Take meds as directed. Please make appointment with Dr. Starr to get appointment for possible physical therapy or further imaging as needed Clinical Impressions Clinical Impression: Lumbar back pain Stand Alone Forms Stand Alone Forms: Work/School Release Instructions Patient Instructions: DI for Low Back Pain Print Language Print Language: [place] Discharge ED Provider: Anastasia Escobar General Adult HPI General Chief complaint: PAIN Stated complaint: lower back pain x four days Time Seen by Provider: 08/17/25 17:39 History of Present Illness HPI narrative: 34-year-old female presents to the ED today for complaint of bending down to pick something up and feeling like her back correct. She says her back hurts off and on anyway but it is getting worse. She states that she cannot move without the pain moving across the left part of her back and causing 10 out of 10 pain. She says that she has taken naproxen and Tylenol that does not help. She says it does go down her legs if she moves. She says no bowel or bladder changes. No saddle anesthesias. She says it feels like it aches and shoots pain. Denies fevers or chills. No drug use. No redness or swelling. No other associated signs or symptoms Related Data Home Medications ?Medication ?Instructions ?Recorded ?Confirmed sertraline 50 mg tablet 50 mg PO DAILY Depression 12/25/22 vitamins with calcium 1 tab PO DAILY 11/07/22 12/25/22 no.72-iron 27 mg-folic acid 1 mg tablet ( Vitamins Plus Low Iron) Previous Rx's ?Medication ?Instructions ?Recorded medroxyprogesterone 10 mg tablet 10 mg PO DAILY 7 days #7 tabs 12/25/22 (Provera) clomiphene citrate 50 mg tablet 100 mg (2 x 50 mg) PO DAILY 5 days 03/06/23 #10 tabs amoxicillin 500 mg capsule 500 mg PO TID 7 days #21 ca ps 12/28/23 ketorolac 10 mg tablet 10 mg PO Q8H 5 days #15 tabs 08/17/25 methocarbamol 1,000 mg tablet 1,000 mg PO QID 72 hours #12 tabs 08/17/25 prednisone 20 mg tablet 20 mg PO BID 7 days #14 tabs 08/17/25 Allergies Allergy/AdvReac Type Severity Reaction Status Date / Time No Known Drug Allergies Allergy Unknown -- Verified 12/25/22 14:52 [facility] Disclaimer: The information contained in this section may have been updated after the patient was seen, as this information can be updated by other users. Medical History Anxiety Depression Urinary tract infection Surgical History History of dilation and curettage Family History Other No significant family history Social History Smoking Status: Current every day smoker tobacco type: cigarettes packs per day: 1 alcohol intake: never substance use type: denies use current occupational status: employed Travel in the last 8 weeks?: None Have you lived/traveled outside US in past 30 days?: No Contact w/someone who lives/traveled outside US past 30 days?: No Exposure to someone with infectious disease in past 14 days?: No Do you have a fever (greater than 100.4 F or 38 C)?: No Have you tested positive for COVID-19?: No Exposed to someone with COVID-19 in past 14 days?: No Do you have a sore throat?: No Do you have a cough?: No Do you have any weakness?: No Do you have any diarrhea?: No Are you experiencing any unusual bleeding?: No Do you have any muscle aches/pain?: No Do you have any abdominal pain?: No Are you experiencing loss of taste or smell?: No Other Medical History Have you received the Flu Vaccine for this season: No Have you received the Pneumonia Vaccine: No ROS Obtained: Yes Systems reviewed as appropriate & no additional complaints except as documented Constitutional Constitutional: Reports as per HPI Physical Exam General General appearance: alert Head Head exam: normocephalic Eye Eye exam: Present PERRL and EOMI ENT ENT exam: Present normal oropharynx and mucous membranes moist Neck Neck exam: Present full ROM and trachea midline Respiratory Respiratory exam: Present normal lung sounds bilaterally Cardiovascular Cardiovascular exam: Present regular rate, normal rhythm, normal heart sounds, +S1 and +S2 Abdominal Exam Abdominal exam: Present normal bowel sounds Extremities Exam Extremities exam: Present full ROM and normal capillary refill Back Exam Back exam: Present normal inspection and tenderness (Across low back and left side) Neurological Exam Neurological exam: Present alert and oriented X3 Skin Skin exam: Present warm and dry Medical Decision Making Medical Records Screening: Per USPSTF and CDC recommendations, given the prevalence of disease in our region, it is our hospital?s policy to screen for HIV and viral Hepatitis for all patients aged 18 and over and those with ongoing risk factors. Amadeo Inquiry Pt receiving controlled substance: No Amadeo was queried for this patient: No Vital Signs: 08/17/25 17:40 08/17/25 17:40 Temperature 98.2 F 98.2 F Temperature Source Oral Oral Pulse Rate 63 Pulse Rate [Right] 63 Respiratory Rate 18 18 Blood Pressure 153/72 H Blood Pressure [Right Arm] 153/72 H Blood Pressure Mean [Right Arm] 99 Blood Pressure Source Automatic Cuff Blood Pressure Source [Right Arm] Automatic Cuff Blood Pressure Position Supine Blood Pressure Position [Right Arm] Supine 02 Sat by Pulse Oximetry 99 99 Oxygen Delivery Method Room Air Room Air Lab Data Lab Results 08/17/25 18:53: Urine Color Yellow, Urine Appearance Clear, Urine pH 7.0, Ur Specific Noel 1.020, Urine Protein Negative, Urine Glucose (UA) Negative, Urine Ketones Negative, Urine Blood Negative, Urine Nitrate Negative, Urine Bilirubin Negative, Urine Urobilinogen 0.2, Ur Leukocyte Esterase Negative, Urine RBC 3-5, Urine WBC 10-20, Ur Squamous Epith Cells 20-50, Urine Bacteria 3+, Urine Mucus 2+, Urine HCG, Qual Negative Orders (Tests/Meds): ED MEDICATIONS Discontinued Medications Generic Name Dose Route Start Last Admin Trade Name Andraeq PRN Reason Stop Dose Admin Acetaminophen 1,000 mg 08/17/25 17:58 08/17/25 18:09 Acetaminophen 500mg Tab PO 08/17/25 17:59 1,000 mg ONCE ONE Administration Ketorolac Tromethamine 30 mg 08/17/25 17:58 08/17/25 18:10 Ketorolac 30mg/Ml Vial IM 08/17/25 17:59 30 mg ONCE ONE Administration Lidocaine 1 each 08/17/25 17:44 08/17/25 18:09 Lidocaine 5% Transdermal Patch TD 08/17/25 17:45 1 each ONCE ONE Administration Orphenadrine Citrate 60 mg 08/17/25 17:58 08/17/25 18:10 Orphenadrine Citrate 60mg/2ml Vial IM 08/17/25 17:59 60 mg ONCE ONE Administration ORDERS Category Date Time Status CT lumbar spine wo con Stat Cat Scan 08/17/25 17:44 Completed HIV Combo Stat Lab 08/17/25 17:53 Ordered Hepatitis C Ab Qual. W/ RFX Stat Lab 08/17/25 17:53 Ordered Urinalysis and Microscopic Stat Lab 08/17/25 18:53 Completed Urine , HCG Qual. Stat Lab 08/17/25 18:53 Completed Urine Culture Stat Micro 08/17/25 18:53 Received Medical Decision Narrative: patient is a 35-year-old female presenting to the emergency department for evaluation of low back pain more on the left than the right. No specific injury. Patient is hemodynamically stable and nontoxic-appearing upon arrival, afebrile. Differential diagnosis includes lumbar pain, strain, pyelonephritis, among others. Workup will be conducted with specific imaging. Initial inventions include analgesics. Workup includes CT scan of lumbar, urine. Patient will be given Toradol, Tylenol, lidocaine patch and Norflex for pain. Patient scan of her lumbar was fine see read for radiology report. Patient's pain has essentially stayed the same but she and I discussed doing physical therapy and seeing PCP in follow-up. Patient is safe for discharge home with follow-up care Critical Care Critical Care Time Critical Care Time: No
[2025-08-17] MEDS: LIDOCAINE 5% TRANSDERMAL PATCH 1 EACH TD (18:09)
[2025-08-17] MEDS: ACETAMINOPHEN 500MG TAB 1000 MG PO (18:09)
[2025-08-17] MEDS: KETOROLAC 30MG/ML VIAL 30 MG IM (18:10)
[2025-08-17] MEDS: ORPHENADRINE CITRATE 60MG/2ML VIAL 60 MG IM (18:10)
--- OUTSIDE RECORDS SUMMARY | 2025-08-17 18:12 | XMS_ITS | Clinical Summary ---
Author Organization Healthcare Address [address] [place] [address] Care Team Providers Care Reacher Name Role Phone Suzan Mclaughlin DANDY ANGUIANO Unavailable [phone] Pcp, No Primary Care Provider Unavailabl e Allergies No known active allergies Medications MV-Min-Fe Fum-FA-DHA ( 1 PO) Take by mouth. Active norethindrone (Micronor) 0.35 MG tablet Take 1 tablet (0.35 mg) by mouth 1 (one) time each day. 28 tablet 11 4 Active etonogestrel-et hinyl estradiol (NuvaRing) 0.12-0.015 MG/24HR vaginal ring Insert vaginally and leave in place for 3 consecutive weeks, then remove for 1 week. 1 each 12 4 Active sertraline (Zoloft) 50 MG tabletIndicatio ns:Anxiety and depression Take 1 tablet (50 mg) by mouth 1 (one) time each day. 30 tablet 11 4 Active Active Problems Problem Noted Date Diagnosed Date Anxiety and depression 08/13/2020 anxiety 04/02/2020 Resolved Problems Problem Noted Date Diagnosed Date Resolved Date Upper respiratory infection 07/12/2023 07/12/2023 06/25/2025 Immunizations Immunization Administration Dates Next Due Influenza, injectable, quadrivalent 07/20/2019 Influenza, injectable, quadrivalent, preservativ e free 06/23/2023 Tdap 11/17/2023,08/17/2019 Social History Tobacco Use Types Packs/Day Years Used Date Smoking Tobacco: Former Cigarettes Smokeless Tobacco: Never Tobacco Cessation:Counseling Given: Not Answered Comments:Smokes 1 pack of cigarettes per day Alcohol Use Standard Drinks/Week Comments Yes 1 (1 standard drink = 0.6 oz pur e alcohol) PHQ-2 Answer Date Recorded Patient Health Questionnaire-2 Score 0 02/24/2024 [place] Depression Scale Answer Date Recorded [place] Depression Scale Total 0 02/10/2024 The thought of harming myself has occurred to me . Never 02/10/2024 PHQ-2A Answer Date Recorded Patient Health Questionnaire-2 Score 0 08/25/2023 Comments No Sex and Gender Information Value Date Recorded Sex Assigned at Not on file Legal Sex Female 8:06 PM EDT Gender Identity Not on file Sexual Orientation Not on file Last Filed Vital Signs Vital Sign Reading Time Taken Comments Blood Pressure 134/93 03/09/2024 10:38 AM EDT Pulse 67 03/09/2024 10:38 AM EDT Temperature 36.7 C (98 F) 03/09/2024 10:38 AM EDT Respiratory Rate 20 03/09/2024 10:3 8 AM EDT Oxygen Saturation 99% 03/09/2024 10: 38 AM EDT Inhaled Oxygen Concentration - - Weight 75.2 kg (165 lb 12.6 oz) 024 10:38 AM EDT Height 162.6 cm (5' 4 ) 03/09/2024 10:3 8 AM EDT Body Mass Index 28.46 03/09/2024 10:38 AM EDT Plan of Treatment Health Maintenance Due Date Last Done Comments [facility]-/Child/Adol SDOH Screenings 1992 [facility]-Varicella Vaccines (1 of 2 - 13+ 2-dose series) 2005 [facility]- SDOH Screenings 2010 [facility]-Adult SDOH Screenings 2010 [facility]-Hepatitis B Vaccines (1 of 3 - 19+ 3-dose series) 2011 HPV Vaccines (1 - 3-dose SCDM series) 2019 [facility]-Depression Screening 02/23/2025 02/24/2024, 05/2024 [id number] Vaccine ( season) 2025 [facility]-Influenza Vaccine (#1) 2025 06/23/2023, [facility]-Pap Smear 03/09/2027 03/09/2024, 07/05/2021 [facility]-Cervical Cancer Screening 03/09/2029 [facility]-HPV/Cotest 03/09/2029 03/09/2024, 07/05/2021 [facility]-DTaP,Tdap,and Td Vaccines (3 - Td or Tdap) 11/17/2033 11/17/2023, 08/17/2019 [facility]-Zoster Vaccines (1 of 2) 2042 [facility]-HIV Screening Completed 06/23/2023, , 04/05/2019 [facility]-Hepatitis C Screening Completed 2022, 04/29/2023, 04/05/2019 [facility]-Obesity Intervention Completed 024, 02/24/2024, 02/10/2024, Additional history exists [facility]-HIB Vaccines Aged Out No longer e ligible based on patient's age to complete this topic [facility]-Hepatitis A Vaccines Aged Out No longer eligible based on patient's age to complete this topic [facility]-IPV Vaccines Aged Out No longer e ligible based on patient's age to complete this topic [facility]-Pneumococcal Vaccine: Pediatrics (0 to 5 Years) and At-Risk Patients (6 to 49 Years) Aged Out No longer eligible based on patient's age to complete this topic [facility]-Rotavirus Vaccines Aged Out No lo nger eligible based on patient's age to complete this topic Goals Goal Patient Goal Type Associated Problems Recent Progress Patient-Stated? Author Delayed Delivery Care Plan CPM S22 PP LABOR (OBSTETRICS) No Open Scheduling, Background Procedures Procedure Name Priority Date/Time Associated Diagnosis Comments PAP TEST - CYTOLOGY Routine 03/09/2024 1 0:56 AM EDT Encounter for annual routine gynecological examination HEPATITIS C ANTIBODY W/REFLEX TO HCV QUANT PCR Routine 06/23/2023 1:22 PM EDT Unsure of LMP (last menstrual period) as reason for ultrasound scan HIV 1/2 ANTIBODY/ANTIGEN SCREEN WITH REFLEX TO HIV I/II DIFFERENTIATION Routine 06/23/2023 1:22 PM EDT Unsure of LMP (last menstrual period) as reason for ultrasound scan from Last 3 Months or Most Recently Relevant to Health Maintenance Results * Pap Test (03/09/2024 10:56 AM EDT) Case Report Cytology Case: [id number] Authorizing Provider: Ricky Meza MD Collected: 03/09/2024 1056 Ordering Location: Obstetrics & Gynecology Received: 03/10/2024 0923 First Screen: Lesley Gilbert Specimen: ThinPrep Pap Test, Liquid-Based Cervical/Vaginal 03/28/2024 2:05 PM EDT [facility] Interpretation NEGATIVE FOR INTRAEPITHELIAL LESION OR MALIGNANCY 03/28/2024 2:05 PM EDT [facility] at 1405 EDT Specimen Adequacy Satisfactory for evaluation; endocervical/tse sformation zone component present. Slide imaged by the ThinPrep Imaging system and selected 22 crane reviewed then full manual screening. 03/28/2024 2:05 PM EDT [facility] Cervical cytology is a screening test primarily for squamous cancers and precursors and has associated false negative and positive results. New technologies such as liquid based sampling may decrease but will not eliminate all false negative results. Regular screening and follow-up of unexplained clinical signs and symptoms are recommended to minimize false negative results. Please see the ASCCP website (www.asccp.org)fo r followup recommendations. If HPV testing was requested, correlation with the results is suggested (please call Microbiology at [phone] for results). 03/28/2024 2:05 PM EDT [facility] Menstrual Status Post- 024 2:05 PM EDT [facility] Contraceptive History control pills 03/28/2024 2:05 PM EDT [facility] Screening Type Previous or Suspected Abnormality 03/28/2024 2:05 PM EDT [facility] HPV Testing Requested? Request HPV Testing Regardless of Pap Test Findings 03/28/2024 2:05 PM EDT [facility] Previous Cancer History No 03/28/2024 2:05 PM EDT [facility] Previous or Suspected Abnormality Previous Abnormal Pap 03/28/2024 2:05 PM EDT [facility] Clinical Information Z01.419 - Encounter for annual routine gynecological examination [ICD-10-CM] 03/28/2024 2:05 PM EDT [facility] Swab Vaginal and cervical cytologic material / Unknown Non-blood Collection / Unknown 03/09/2024 10:56 AM EDT 03/10/2024 9:25 AM EDT Result Ese Meza MD LAB CYTOLOGY ORDERABLES Final R esult Performing Organization Address City/[facility]/ZIP Co de Phone Number [facility] [address] [place] [address] * HIV 1 & 2 Antibody/Antigen Screen (06/23/2023 1:22 PM EDT) [facility] HIV 1 & 2 Antibody/Antigen Screen Non Reactive Non Reactive 06/23/2023 7:03 PM EDT [facility] Comment:Screening for HIV 1 & 2 antibodies, and P24 antigen is NONREACTIVE. No confirmatory testing is required. Blood Venous blood specimen / Unknown Venipuncture / Unknown 06/23/2023 1:22 PM EDT 06/23/2023 5:56 PM EDT Result Ese Meza MD LAB BLOOD ORDERABLES Final Resu lt Performing Organization Address [facility] Co de Phone Number [facility] [address] [place] [address] * Hepatitis C Antibody w/Reflex to HCV Quant PCR (06/23/2023 1:22 PM EDT) [facility] Hepatitis C Antibody Negative Negative 06/23/2023 6:27 PM EDT [facility] Blood Venous blood specimen / Unknown Venipuncture / Unknown 06/23/2023 1:22 PM EDT 06/23/2023 5:56 PM EDT Result Ese Meza MD LAB BLOOD ORDERABLES Final Resu lt Performing Organization Address City/[facility]/ZIP Co de Phone Number [facility] [address] [place] [address] from Last 3 Months or Most Recently Relevant to Health Maintenance Additional Health Concerns Active Problems Noted Date Diagnosed Date CPM S22 PP LABOR (OBSTETRICS) 07/14/2023 Insurance [facility] Care Teams Reacher Relationship Specialty Start Date End Date Pcp, No [address] [place] [address] PCP - General 07/05/21 Suzan Mclaughlin APRN, CNM [facility] [place] [address] Nurse Practitioner Midwifery 04/12/21
[2025-08-17 19:01] LABS: Microscopic, Urine URINE MICROSCOPIC (MICROSCOPIC)
[2025-08-17 19:06] LABS: Bilirubin,Urine Negative (Negative); Color,Urine YELLOW (Yellow); Glucose,Urine (UA) Negative (Negative); Ketones,Urine Negative (Negative); Leukocyte Esterase,Urine Negative (Negative); PH,Urine 7.0 (5.0-8.5); Protein,Urine Negative (Negative); Specific Gravity, Urine 1.020 (1.005-1.030); Urobilinogen,Urine 0.2 EU/dl (0.2)
[2025-08-17 19:09] LABS: Urine Pregnancy, HCG Qual. Negative (Negative)
[2025-08-17 19:45] LABS: Bacteria,Urine 3+ /lpf; Mucus,Urine 2+ /lpf; Squamous Epithelial Cell,Urine 20-50 #/hpf (0-5)
[2025-08-17 20:20] VITALS: BP 128/80; PULSE 62; RESP 16; TEMP 36.7; O2SAT 100
== END 2025-08-17 20:21 | disposition home or self-care (01) ==
PROVIDERS: Nurse Practitioner; Emergency Provider Student in an Organized Health Care Education/Training Program
DX: M54.50 Low back pain, unspecified (principal); F17.210 Nicotine dependence, cigarettes, uncomplicated
CPT/HCPCS: 72131; 81001; 81025; 87086; 96372; 99283; 99284; J1885; J2360